=== PATIENT | female | born 1935 | race Native Hawaiian/Other Pacific Islander ===

== ENCOUNTER 2017-06-12 13:29 | Emergency (ER) | payer OTHER ==
[~2017-06-12] VITALS: Ht 165.1 cm; Wt 63.5 kg
[~2017-06-12 13:29] MED LIST: BENADRYL25 M1 PO; LIPITOR40 MG PO; TIROSINT50 MCG PO
[2017-06-12 13:43] VITALS: TEMP 97.1
[2017-06-12 16:03] VITALS: BP 159/84
== END 2017-06-12 16:05 | disposition home or self-care (01) ==
LOC: ED 13:29
PROC: 0HQKXZZ Repair Right Lower Leg Skin, External Approach (ICD-10-PCS; principal; 2017-06-12)
DX: S81.811A Laceration without foreign body, right lower leg, initial encounter (principal); W51.XXXA Accidental striking against or bumped into by another person, initial encounter; Y92.89 Other specified places as the place of occurrence of the external cause
CPT/HCPCS: 99283

== ENCOUNTER 2018-11-21 19:06 | Observation (INO) | payer OTHER ==
[~2018-11-21] VITALS: Ht 165.1 cm; Wt 64.2 kg
[2018-11-21 19:46] LABS: PLATELET COUNT 279 K/uL (152-353)
[2018-11-21 19:51] VITALS: BP 84/42; TEMP 97.6
[2018-11-21 19:53] LABS: POTASSIUM 3.7 mmol/L (3.6-5.2)
[2018-11-21 20:00] VITALS: BP 140/61
[2018-11-21 20:08] LABS: PARTIAL THROMBOPLASTIN TIME 30.8 SECONDS (24.5-33.6)
[2018-11-21 20:21] VITALS: BP 150/63
[2018-11-21 20:40] VITALS: BP 147/59
[2018-11-21 21:00] VITALS: BP 89/15
[2018-11-21 21:30] VITALS: BP 68/1; BP 68/31
[2018-11-21 22:56] LABS: PLATELET COUNT 227 K/uL (152-353)
[2018-11-22 00:36] VITALS: BP 97/39; TEMP 97.4; Ht 165.1 cm; Wt 64.2 kg
[2018-11-22] MEDS ORDERED: PANTOPRAZOLE 40MG TA PO (01:04)
[2018-11-22] MEDS ORDERED: JANTOVEN6 MG PO (01:08)
[2018-11-22] MEDS ORDERED: [UNRECOGNIZED DRUG - OTHER] PO (01:09)
[2018-11-22] MEDS ORDERED: ASPIRIN 81 LOW81 MG PO (01:10)
[2018-11-22] MEDS ORDERED: D31000 UNIT PO (01:13)
[2018-11-22] MEDS ORDERED: CALCIUM & MAGNE1 TAB PO (01:14)
[2018-11-22] MEDS ORDERED: AMITRIPTYLIN50 MG PO (01:16)
[2018-11-22 04:00] VITALS: BP 117/62; TEMP 97.7
[2018-11-22 05:37] LABS: PLATELET COUNT 195 K/uL (152-353)
[2018-11-22 08:00] VITALS: BP 101/46; TEMP 97.4
[2018-11-22 12:00] VITALS: BP 105/46; TEMP 97.5
[2018-11-22 14:57] LABS: PLATELET COUNT 215 K/uL (152-353)
[2018-11-22 15:14] LABS: PARTIAL THROMBOPLASTIN TIME 29.7 SECONDS (24.5-33.6)
== END 2018-11-22 19:00 | disposition short-term general hospital (02) ==
LOC: ED 19:06 → MED/SURG 21:20
PROVIDERS: Family Medicine; Internal Medicine; ADMIT Internal Medicine
PROC: 30233N1 Transfusion of Nonautologous Red Blood Cells into Peripheral Vein, Percutaneous Approach (ICD-10-PCS; principal; 2018-11-22)
PROC: 30233K1 Transfusion of Nonautologous Frozen Plasma into Peripheral Vein, Percutaneous Approach (ICD-10-PCS; 2018-11-22)
DX: S81.812A Laceration without foreign body, left lower leg, initial encounter (principal); S80.12XA Contusion of left lower leg, initial encounter; I95.89 Other hypotension; Z79.01 Long term (current) use of anticoagulants; I48.2 Chronic atrial fibrillation; E03.8 Other specified hypothyroidism; F03.90 Unspecified dementia, unspecified severity, without behavioral disturbance, psychotic disturbance, mood disturbance, and anxiety; T79.A22A Traumatic compartment syndrome of left lower extremity, initial encounter; D62 Acute posthemorrhagic anemia; W22.8XXA Striking against or struck by other objects, initial encounter; Y92.090 Kitchen in other non-institutional residence as the place of occurrence of the external cause
CPT/HCPCS: 36415; 36430; 80053; 82550; 82553; 83615; 84484; 85027; 85610; 85730; 86850; 86900; 86901; 86922; 90471; 90715; 93005; 96360; 96361; 96365; 96366; 96375; 99220; 99284; G0378; J2405; J3430; P9016; P9017

== ENCOUNTER 2018-11-29 10:20 | Inpatient (IN) | payer OTHER ==
[~2018-11-29] VITALS: Ht 165.1 cm; Wt 62.8 kg
[~2018-11-29 10:20] MED LIST changes: +AMITRIPTYLIN50 MG PO; +ASPIRIN 81 LOW81 MG PO; +CALCIUM & MAGNE1 TAB PO; +D31000 UNIT PO; +JANTOVEN6 MG PO; +PANTOPRAZOLE 40MG TA PO; +[UNRECOGNIZED DRUG - OTHER] PO
[2018-11-29 13:03] LABS: PLATELET COUNT 303 K/uL (152-353)
[2018-11-29 13:21] LABS: POTASSIUM 3.7 mmol/L (3.6-5.2)
[2018-11-29 13:22] LABS: PARTIAL THROMBOPLASTIN TIME 26.9 SECONDS (24.5-33.6)
[2018-11-29 14:04] VITALS: BP 131/59; TEMP 98.4
[2018-11-29] MEDS ORDERED: OXYC5TAB53 PO (15:10)
[2018-11-29 16:14] VITALS: BP 131/60; TEMP 98.4; Ht 165.1 cm; Wt 62.8 kg
[2018-11-29 20:00] VITALS: BP 100/40; TEMP 98.3
[2018-11-30] VITALS (7 sets, daily range): BP systolic 107–127; BP diastolic 42–65; TEMP 97.3–99.3
[2018-11-30 06:06] LABS: POTASSIUM 3.8 mmol/L (3.6-5.2)
[2018-11-30 06:43] LABS: PLATELET COUNT 313 K/uL (152-353)
[2018-12-01 03:58] VITALS: BP 105/51; TEMP 97.9
[2018-12-01 05:32] LABS: PLATELET COUNT 326 K/uL (152-353)
[2018-12-01 06:14] LABS: POTASSIUM 3.7 mmol/L (3.6-5.2)
== END 2018-12-04 08:00 | disposition swing bed (61) | DRG 605 ==
LOC: MED/SURG 10:20
PROVIDERS: ADMIT Family Medicine
PROC: 30233N1 Transfusion of Nonautologous Red Blood Cells into Peripheral Vein, Percutaneous Approach (ICD-10-PCS; principal; 2018-11-30)
DX: S80.12XA Contusion of left lower leg, initial encounter (principal); R53.1 Weakness; I48.91 Unspecified atrial fibrillation; Z79.01 Long term (current) use of anticoagulants; E03.8 Other specified hypothyroidism; E78.49 Other hyperlipidemia; F03.90 Unspecified dementia, unspecified severity, without behavioral disturbance, psychotic disturbance, mood disturbance, and anxiety; D63.8 Anemia in other chronic diseases classified elsewhere; I10 Essential (primary) hypertension; E78.00 Pure hypercholesterolemia, unspecified; R62.7 Adult failure to thrive
CPT/HCPCS: 36415; 80053; 81000; 82550; 84484; 85027; 85610; 85730; 86850; 86900; 86901; 86922; 93005; J1885; J1940; P9016

== ENCOUNTER 2018-12-01 08:00 | Inpatient (IN) | payer OTHER ==
[~2018-12-01] VITALS: Ht 165.1 cm; Wt 61.8 kg
[~2018-12-01 08:00] MED LIST changes: +OXYC5TAB53 PO
[2018-12-01 08:50] VITALS: BP 116/47; TEMP 98.1
--- NOTE | 2018-12-01 09:27 | NUR ---
PT LEFT VIA WC FOR DR APPT WITH ROBERTO.
--- NOTE | 2018-12-01 13:30 | NUR ---
PT BACK FROM DR HASKINS. FAMILY AT BEDSIDE.
--- NOTE | 2018-12-01 15:30 | NUR ---
Patient c/o of pain to left lower ext. Percocet x1 tablet given to Patient per physician orders.
--- NOTE | 2018-12-01 16:15 | NUR ---
Pt reports pain scale of 2/10 numeric pain scale.
--- NOTE | 2018-12-01 16:15 | NUR ---
Patient resting quietly in bed with eyes closed. No s/sx of distress noted at this time.
[2018-12-01 20:00] VITALS: BP 120/49; TEMP 97.9
--- NOTE | 2018-12-01 23:30 | NUR ---
CHECKED ON PT. STATED SHE DID NOT NEED ANYTHING AT THIS TIME.
--- NOTE | 2018-12-02 07:46 | NUR ---
Dr. Maite Laws at Patient's bedside at this time.
[2018-12-02 08:00] VITALS: BP 126/63; TEMP 98.1
--- NOTE | 2018-12-02 18:05 | NUR ---
CHANGED PT DRESSING USING STERILE FLUSHES VASOLINE GAUZE AND CLING WRAP, NO DISTRESS NOTED FROM PT
[2018-12-02 20:00] VITALS: BP 113/40; TEMP 98.8
[2018-12-03 08:00] VITALS: BP 120/60; TEMP 97.7
--- NOTE | 2018-12-03 13:50 | NUR ---
@1317 PT ADVISED SHE WAS HAVING CHEST PAIN THAT SHE RATED A NINE AND SAID IT WAS "SHARP AND STABBING" 1325 NITRO GIVEN SUB LINGUAL bp 151/92 1332 131/62 pain 8/10 o2 96% 1333 nitro given sublingual 1333 bp 156/71 1334 zofran 4mg given sublingual 1335 pain /10 1341 bp 105/46 pt states "pain is much better" 1350 pt states pain is still there but much better
[2018-12-03 20:00] VITALS: BP 121/56; TEMP 98.2
[2018-12-04 08:00] VITALS: BP 116/54; TEMP 97.3
[2018-12-04 20:00] VITALS: BP 127/67; TEMP 98.4
--- NOTE | 2018-12-05 01:38 | NUR ---
12/05/18 0138 PT RESTLESS LT LEG HURTING SOME REQUESTS PAIN MEDICATION. CALL LIGHT WITHIN REACH.CC
--- NOTE | 2018-12-05 06:13 | NUR ---
12/05/18 0610 AWAKE LYING IN BED NO C/O VOICED.CC
[2018-12-05 08:00] VITALS: BP 125/63; TEMP 97.3
--- NOTE | 2018-12-05 09:48 | NUR ---
PRACTICAL MATTER STATEMENT IS A 83 YEAR OLD WHITE FEMALE ADMITTED TO THE FACILITY ON 12/04/18 FOR SHORT TERM REHAB. REQUIRES 24-HOUR SENIOR LIVING CARE, WHICH IS A PRACTICAL MATTER AND CAN ONLY BE DONE ON AN INPATIENT BASIS. REQUIRES ASSISTANCE WITH ALL ADL'S. SHE LIVES ALONE AND HER FAMILY IS UNABLE TO PROVIDE THE TYPE OF CARE AT THIS TIME. APPLIQUE CUTTER WILL CONTINUE TO OBSERVE AND ASSIST WITH ANY MEDICALLY RELATED PSYCHOSOCIAL NEEDS PRN.
--- NOTE | 2018-12-05 17:30 | NUR ---
DRESSING CHANGED TO LEFT LOWER EXTREMITY, OLD DRESSING REMOVED, MODERATE AMOUNT OF SEROUS FLUID ON GAUZE, BLACK NECROTIC TISSUE NOTED TO WOUND, ALSO, PINK GRANULAR TISSUE AND A SMALL AREA SIZE OF A PENCIL ERASER LOOKED LIKE A TUNNEL STARTING TO FORM, RINSED WOUND WITH 60ML OF NORMAL SALINE, NEW DRESSING APPLIED- 2 TELFA DRESSINGS AND 4X4 GAUZE APPLIED, WRAPPED WITH KERLIX AND BARNEY WRAP, PT TOLERATED WELL. NO C/O PAIN.
[2018-12-05 20:00] VITALS: BP 130/67; TEMP 98.2
[2018-12-06 20:00] VITALS: BP 131/60; TEMP 98
--- NOTE | 2018-12-07 06:24 | NUR ---
12/07/18 0515: DRESSING CHANGE TO LEFT CALF. TISSUE BRIGHT RED WITH LOOSE ESCHAR TISSUE AROUND EDGES. PT TOLERATED WELL.
[2018-12-07 08:00] VITALS: BP 114/63; TEMP 97.1
[2018-12-07 20:00] VITALS: BP 145/73; TEMP 98.1
[2018-12-08 08:00] VITALS: BP 121/62; TEMP 97.8
[2018-12-08 20:00] VITALS: BP 137/60; TEMP 97.7
[2018-12-09 08:26] VITALS: BP 133/70; TEMP 97.8
[2018-12-09 20:12] VITALS: BP 131/66; TEMP 98.8
[2018-12-10 07:22] VITALS: BP 114/64; TEMP 97.8
--- NOTE | 2018-12-10 18:45 | NUR ---
LATE ENTRY 12/09/18 DRESSING CHANGE COMPLETED TO LEFT LOWER EXT. WOUND NOTED TO BE PINK IN COLOR EXCEPT AROUND EDGES ON WOUND TO THE BOTTOM LEFT. SMALL AMT OF ESCHAR NOTED TO EDGES. SMALL AMT OF ESCHAR NOTED TO TOP RT OF WOUND. WOUND CLEANED WITH NS, VASELINE GAUZE APPLIED AND WRAPPED WITH FEI AND BARNEY WRAP.
--- NOTE | 2018-12-10 18:47 | NUR ---
1600 DRESSING CHANGE COMPLETED TO LEFT LOWER LEG. WOUND REMAINS UNCHANGED FROM YESTERDAY. WOUND CLEANED WITH NS, VASELINE GAUZE APPLIED AND WRAPPED WITH FEI AND BARNEY WRAP. PT TOELRATED WELL. SURGEON TO BE NOTIFIED IN AM FOR SOONER APPT PER DR MEDEROS. FAMILY AWARE.
[2018-12-10 20:00] VITALS: BP 116/59; TEMP 98.3
--- NOTE | 2018-12-10 22:00 | NUR ---
Patient is resting in bed with eyes opened. Took meds with no distress noted. Call light is within reach. Left leg is elevated on pillow. Will continue to monitor.
--- NOTE | 2018-12-11 07:16 | NUR ---
Dressing change was done to lower left extremity. Patient tolerated with no acute distress noted. Leg elevated on pillow. Call light is within reach.
[2018-12-11 08:00] VITALS: BP 138/66; TEMP 97.8
[2018-12-11 19:43] VITALS: BP 129/58; TEMP 97.8
[2018-12-12 08:00] VITALS: BP 119/62; TEMP 97.8
[2018-12-12 18:00] LABS: PARTIAL THROMBOPLASTIN TIME 38.3 SECONDS (24.5-33.6)
[2018-12-12 19:42] VITALS: BP 139/61; TEMP 97.8
[2018-12-13 08:00] VITALS: BP 112/51; TEMP 97.9
[2018-12-13 20:00] VITALS: BP 119/58; TEMP 98.3
[2018-12-14 08:00] VITALS: BP 119/53; TEMP 97.9
--- NOTE | 2018-12-14 16:18 | NUR ---
1600 DRESSING CHANGE OCMPLETED TO LEFT LOWER EXT PER ORDERS. SMALL AMT OF DRAINAGE NOTED TO OLD DRESSING THAT WAS REMOVED. SMALL AMT OF ESCHAR NOTED TO OUTER TOP PART OF WOUND. NO ACTIVE BLEEDING NOTED AT THIS TIME. WOUND CLEANED WITH NS AND VASELINE GAUZE APPLIED TO OPEN PART OF WOUND. 4X4'S APPLIED AND WRAPPED WITH FEI. PT TOLERATED WELL,
[2018-12-14 20:00] VITALS: BP 114/59; TEMP 97.6
[2018-12-15 08:07] VITALS: BP 112/54; TEMP 97.9
[2018-12-15 19:49] VITALS: BP 127/60; TEMP 98.1
[2018-12-16 08:00] VITALS: BP 121/61; TEMP 97.5
--- NOTE | 2018-12-16 14:43 | NUR ---
DRESSING CHANGE TO LEFT LOWER ANTERIOR TIBIA. OPEN , WITH PROXIMAL AREA OF ESCHAR APPROX 5.0CMX 5.0 CM WITH SEROUS EXUDATES. NO ODOR. DISTAL PULSE DP/PT 2+. NVI INTACT DISTALLY. COVERED WITH VASELINE GAUZE AND DSD.
--- NOTE | 2018-12-16 19:30 | NUR ---
PM ASSESSMENT COMPLETE
[2018-12-16 19:58] VITALS: BP 117/53; TEMP 98
[2018-12-17 08:00] VITALS: BP 127/62; TEMP 97.5
[2018-12-17 19:38] VITALS: BP 126/72; TEMP 98.1
[2018-12-18 08:00] VITALS: BP 138/65; TEMP 97.6
[2018-12-18 20:00] VITALS: BP 122/60; TEMP 97.4
[2018-12-19 08:00] VITALS: BP 114/57; TEMP 97.3
[2018-12-19 20:00] VITALS: BP 120/63; TEMP 97.3
--- NOTE | 2018-12-20 17:45 | NUR ---
1600 DRESSING CHANGE TO LEFT LOWER EXT. WOUND LITTLE MOIST. MD AT BS. NO ACTIVE BLEEDING OR DRAINAGE NOTED FROM WOUND. SMALL AMT OF ESCHAR NOTED TO TOP OF WOUND. WILL LEAVE OPEN TO AIR PER MD. 1800 WOUND NOTED TO BE LESS MOIST AFTER AIR. VASELINE GAUZE APPLIED TO OPEN AREAS. LIGHT AMT OF FEI APPLIED. PT TOLERATED WELL
[2018-12-20 20:08] VITALS: BP 125/52; TEMP 98
--- NOTE | 2018-12-21 05:50 | NUR ---
PT CONTINUES TO REST WITH EYES CLOSED. AROUSES EASILY.
[2018-12-21 08:00] VITALS: BP 95/50; TEMP 98.1
[2018-12-21 19:44] VITALS: BP 110/83; TEMP 98.1
--- NOTE | 2018-12-21 19:45 | NUR ---
PM ASSESSMENT COMPLETE
--- NOTE | 2018-12-22 06:16 | NUR ---
AM MED GIVEN, TOLERATED WELL. NO C/O AT THIS TIME
[2018-12-22 08:00] VITALS: BP 137/62; TEMP 98.1
--- NOTE | 2018-12-22 09:59 | NUR ---
1000 PT LEFT WITH FAMILY FOR APPT [place] WITH SURGEON. PT LEFT AMBULATORY NO PROBLEMS NOTED. 0945 DRESSING CHANGE COMPLETED TO LEFT LOWER EXT PER ORDERS. WOUND CLEANED WITH NS AND VASELINE GAUZE APPLIED. WRAPPED WITH FEI. NO ACTIVE BLEEDING OR DRAINAGE NOTED. SMALL AMT OF ESCHAR NOTED TO TOP OUTER PART OF WOUND,
--- NOTE | 2018-12-22 16:12 | NUR ---
1530 PT RETURNED FROM 'S APPT WITH FAMILY. PT BACK IN ROOM AT THIS TIME. NEW ORDERS REC'D FOR DAILY DRESSING CHAGES TO LEFT LOWER EXT WITH SANTYL, VASELINE GAUZE AND WRAP WITH KERLEX. INFORMED. FORD INFORMED. UR WILL SEND ORDERS TO HOME HEALTH AND PT WILL BE DISCHARGED TOMORROW. FAMILY AND PT AWARE
[2018-12-22 20:00] VITALS: BP 104/40; TEMP 98.2
--- NOTE | 2018-12-22 21:00 | NUR ---
PM MEDS GIVEN, TOLERATED WELL.
[2018-12-23 08:00] VITALS: BP 106/55; TEMP 98
--- NOTE | 2018-12-23 15:32 | NUR ---
1330 DISCHARGE INSTRUCTIONS GIVEN AND EXPLAINED TO PT AND PT'S FAMILY. EXPLAINED TO PT PER DR MEDEROS DRESSING CHANGE ORDER FOR TIME OF DISCHARGE HAD BEEN CHANGED TO [facility]. ORDER WRITTEN FOR [facility] AND [facility] AND SENT WITH PT FOR HOME HEALTH NURSE. ATTEMPTED TO CONTACT HOME HEALTH MULTIPLE TIMES WITHOUT SUCCESS. WILL CON'T TRYING. CELL NUMBER LEFT WITH PT ON DISCHARGE INSTRUCTIONS FOR NURSE TO CALL WITH ANY QUESTIONS OR PROBLEMS SINCE UNABLE TO REACH HER AT OFFICE. PT AND FAMILY BOTH VERBALIZED UNDERSTANDING. 1335 PT LEFT VIA WC WITH FAMILY. DRESSING TO LEFT LEG REMAINS CLEAN DRY AND INTACT. NO DISTRESS OR PROBLEMS NOTED. LATE ENTRY 1200 DRESSING CHANGE COMPLETED PER MD ORDERS. DR MEDEROS AT BS. OLD DRESSING REMOVED. MOD AMT OF EXUDATE NOTED TO WOUND AND OLD DRESSING. SMALL AMT OF SERIOUS SANGANGINOUS FLUID NOTED TO 4X4S. WOUND TO LEFT LOWER LEG CLEANED WITH NS. NEW VERBAL ORDERS REC'D TO APPLY MEDIHONEY TO WOUND AND COVER LIGHTLY WITH KIRLEX. PT TOLERATED DRESSING CHANGE NOTED. NO ACTIVE BLEEDING NOTED AT TIME OF DRESSING CHANGE.
== END 2018-12-23 13:30 | disposition home health service (06) | DRG 556 ==
LOC: MED/SURG 08:00
PROVIDERS: Internal Medicine; ADMIT Family Medicine
DX: M62.81 Muscle weakness (generalized) (principal); R26.89 Other abnormalities of gait and mobility; I48.91 Unspecified atrial fibrillation; E03.8 Other specified hypothyroidism; E78.49 Other hyperlipidemia; F03.90 Unspecified dementia, unspecified severity, without behavioral disturbance, psychotic disturbance, mood disturbance, and anxiety; S80.12XA Contusion of left lower leg, initial encounter
CPT/HCPCS: 36415; 82550; 84484; 85610; 85730; 93005

== ENCOUNTER 2019-01-16 11:08 | Emergency (ER) | payer OTHER ==
[~2019-01-16] VITALS: Ht 165.1 cm; Wt 55.3 kg
[2019-01-16 11:20] VITALS: TEMP 97.3
[2019-01-16] MEDS ORDERED: LIPITOR10 MG PO (12:07)
[2019-01-16] MEDS ORDERED: EUTHYROX50 MCG PO (12:08)
[2019-01-16] MEDS ORDERED: JANTOVEN5 MG PO (12:08)
[2019-01-16] MEDS ORDERED: ASPIRIN 81 LOW81 MG PO (12:09)
[2019-01-16 12:32] LABS: PLATELET COUNT 264 K/uL (152-353)
[2019-01-16 12:42] LABS: POTASSIUM 4.6 mmol/L (3.6-5.2)
[2019-01-16 12:47] LABS: PARTIAL THROMBOPLASTIN TIME 36.3 SECONDS (24.5-33.6)
[2019-01-16 14:28] VITALS: BP 110/62
== END 2019-01-16 14:28 | disposition home or self-care (01) ==
LOC: ED 11:08
PROVIDERS: Family Medicine
DX: R21 Rash and other nonspecific skin eruption (principal); I48.91 Unspecified atrial fibrillation
CPT/HCPCS: 36415; 80053; 81000; 85027; 85610; 85730; 96372; 99283; J2930

== ENCOUNTER 2019-05-05 14:39 | Outpatient (CLI) | payer OTHER ==
[~2019-05-05 14:39] MED LIST changes: +EUTHYROX50 MCG PO; +JANTOVEN5 MG PO; +LIPITOR10 MG PO
[2019-05-06] MEDS ORDERED: JANTOVEN4 MG PO (02:35)
== END 2019-05-05 14:56 | disposition short-term general hospital (02) ==
LOC: AMB 14:39
DX: R06.09 Other forms of dyspnea (principal); R06.2 Wheezing; R07.89 Other chest pain; R06.02 Shortness of breath
CPT/HCPCS: A0425; A0429

== ENCOUNTER 2019-05-05 14:59 | Inpatient (IN) | payer OTHER ==
[~2019-05-05] VITALS: Ht 165.1 cm; Wt 64.9 kg
[2019-05-05 15:00] VITALS: BP 120/60; TEMP 98.4
[2019-05-05 15:25] LABS: PLATELET COUNT 176 K/uL (152-353)
[2019-05-05 15:34] LABS: POTASSIUM 3.7 mmol/L (3.6-5.2); SODIUM 137 mmol/L (136-145)
[2019-05-05 16:17] LABS: PARTIAL THROMBOPLASTIN TIME 37.3 SECONDS (24.5-33.6)
[2019-05-05 19:22] VITALS: BP 106/46; TEMP 98.3; Ht 165.1 cm; Wt 64.9 kg
[2019-05-06] VITALS: BP 82/20; TEMP 98.4
[2019-05-06] MEDS ORDERED: JANTOVEN4 MG PO (02:35)
[2019-05-06 03:58] VITALS: BP 101/39; TEMP 98.4
[2019-05-06 05:15] LABS: PLATELET COUNT 143 K/uL (152-353)
[2019-05-06 05:25] LABS: PARTIAL THROMBOPLASTIN TIME 49.5 SECONDS (24.5-33.6)
[2019-05-06 05:29] LABS: POTASSIUM 3.9 mmol/L (3.6-5.2)
[2019-05-06 08:00] VITALS: BP 90/41; TEMP 97.4
[2019-05-06 12:00] VITALS: BP 94/45; TEMP 97.8
[2019-05-06 16:00] VITALS: BP 100/44; TEMP 97.6
[2019-05-06 20:00] VITALS: BP 101/45; TEMP 98.9
[2019-05-07] VITALS: BP 111/51; TEMP 98.3
[2019-05-07 04:00] VITALS: BP 114/55; TEMP 98.3
[2019-05-07 05:23] LABS: PLATELET COUNT 172 K/uL (152-353)
[2019-05-07 05:29] LABS: POTASSIUM 3.3 mmol/L (3.6-5.2)
[2019-05-07 05:57] LABS: PARTIAL THROMBOPLASTIN TIME 44.9 SECONDS (24.5-33.6)
[2019-05-07 08:00] VITALS: BP 112/44; TEMP 97.8
[2019-05-07 12:00] VITALS: BP 115/56; TEMP 98.1
== END 2019-05-07 15:10 | disposition home or self-care (01) | DRG 194 ==
LOC: ED 14:59 → MED/SURG 16:30
PROVIDERS: Internal Medicine; ADMIT Emergency Medicine
DX: J18.8 Other pneumonia, unspecified organism (principal); I48.20 Chronic atrial fibrillation, unspecified; I95.89 Other hypotension; Z79.01 Long term (current) use of anticoagulants; E78.49 Other hyperlipidemia; K21.9 Gastro-esophageal reflux disease without esophagitis; F03.90 Unspecified dementia, unspecified severity, without behavioral disturbance, psychotic disturbance, mood disturbance, and anxiety; E03.8 Other specified hypothyroidism; S81.802D Unspecified open wound, left lower leg, subsequent encounter
CPT/HCPCS: 36415; 80048; 80053; 83605; 83880; 84443; 84484; 85027; 85610; 85730; 87040; 93005; 94640; 94664; 94760; 96365; 99284; J0456; J1956

== ENCOUNTER 2020-07-22 14:29 | Outpatient (CLI) | payer OTHER ==
[~2020-07-22 14:29] MED LIST changes: +JANTOVEN4 MG PO
== END 2020-07-22 22:52 | disposition home or self-care (01) ==
LOC: INF 14:29
PROVIDERS: ATTEND Internal Medicine Endocrinology, Diabetes & Metabolism
DX: Z23 Encounter for immunization (principal)
CPT/HCPCS: 96372

== ENCOUNTER 2020-08-19 09:25 | Outpatient (CLI) | payer OTHER | END 2020-08-19 19:15 | disposition home or self-care (01) | LOC: INF 09:25 | PROVIDERS: ATTEND Internal Medicine | DX: Z23 Encounter for immunization (principal) | CPT/HCPCS: 96372 ==

== ENCOUNTER 2020-09-08 15:37 | Emergency (ER) | payer OTHER ==
[~2020-09-08] VITALS: Ht 165.1 cm; Wt 64.9 kg
[2020-09-08 16:34] LABS: PLATELET COUNT 221 K/uL (152-353)
[2020-09-08 17:56] VITALS: BP 154/67; TEMP 97.1
== END 2020-09-08 17:56 | disposition short-term general hospital (02) ==
LOC: ED 15:41
PROVIDERS: Emergency Medicine Emergency Medical Services
DX: S00.83XA Contusion of other part of head, initial encounter (principal); S81.811A Laceration without foreign body, right lower leg, initial encounter; V86.55XA Driver of 3- or 4- wheeled all-terrain vehicle (ATV) injured in nontraffic accident, initial encounter; Y92.89 Other specified places as the place of occurrence of the external cause
CPT/HCPCS: 80053; 85027; 85610; 99283; 99284